=== PATIENT | female | born 1995 | race Hispanic/Latino ===

== ENCOUNTER 2021-07-01 21:38 | Day surgery (SDC) | payer OTHER ==
[~2021-07-01 21:38] MED LIST: Potassium Chloride 20 MEQ TAB PO SCH
[2021-07-01 22:09] VITALS: BMI 34.4
[2021-07-01] MEDS ORDERED: hydrALAZINE 20 MG/ML VIAL SLOW IVP PRN (22:39)
[2021-07-01] MEDS ORDERED: Lactated Ringer's 1,000 ML IV SCH ×2 (22:45)
[2021-07-01 23:03] LABS: #Monocytes 0.4 10x3/uL (0.0-1.1); #Neutrophils 7.1 10x3/uL (1.5-8.4); %Basophils 0.1 % (0.0-2.0); %Eosinophils 0.4 % (0.0-6.0); %Lymphocytes 11.1 % (18.0-47.0); %Monocytes 4.1 % (0.0-10.0); %Neutrophils 83.7 % (40.0-75.0); Hemoglobin 12.7 g/dL (12.0-15.5); Mean Corpuscular HGB CONC 35.4 g/dL (32.0-36.0); Mean Corpuscular Hemoglobin 32.2 pg (27.0-33.0); Mean Corpuscular Volume 90.9 fl (81.6-98.3); Mean Platelet Volume 11.2 fl (7.4-10.4); Platelet Count 164 10x3/uL (150-450); RBC Distribution Width 12.9 % (11.5-14.5); Red Blood Cell (RBC) Count 3.95 10x6/uL (3.90-5.03); White Blood Cell (WBC) Count 8.5 10x3/uL (3.5-10.5)
[2021-07-01 23:05] LABS: Bilirubin Neg (Negative); Blood, Urine Negative (Negative); Clarity Cloudy (Clear); Glucose, Urine (Dipstick) Normal (Negative); Ketone, Urine 150 mg/dL (Negative); Leukocyte 25 (Negative); Nitrite Negative (Negative); Protein, Urine (Dipstick) 15 mg/dl (Neg-Trace); Specific Gravity, Urine 1.015 (1.002-1.036)
[2021-07-01 23:19] LABS: ALT (SGPT) 12 U/L (8-55); AST (SGOT) 15 U/L (5-34); Albumin 3.5 g/dL (3.5-5.0); Alkaline Phosphatase 108 U/L (40-110); Anion Gap 15 mmol/L (10-20); BUN (Urea Nitrogen) 6 mg/dL (7.0-18.7); Bilirubin, Total 1.6 mg/dL (0.2-1.2); Calc. Creatinine Clearance 178 mL/min (70-130); Calcium 8.4 mg/dL (7.8-10.44); Carbon Dioxide 16 mmol/L (22-29); Chloride 105 mmol/L (98-107); Globulin 3.7 g/dL (2.4-3.5); Glucose 91 mg/dL (70-105); Potassium 3.1 mmol/L (3.5-5.1); Protein, Total 7.2 g/dL (6.0-8.3); Sodium 133 mmol/L (136-145)
[2021-07-01 23:23] LABS: Bacteria/HPF 2+ HPF (None Seen); Mucous/LPF None Seen LPF (<2+); RBC/HPF 0-3 HPF (0-3)
[2021-07-02 00:33] LABS: Bilirubin Neg (Negative); Blood, Urine Negative (Negative); Glucose, Urine (Dipstick) Normal (Negative); Ketone, Urine 50 mg/dL (Negative); Leukocyte Negative (Negative); Nitrite Negative (Negative); Protein, Urine (Dipstick) Negative (Neg-Trace); Specific Gravity, Urine 1.005 (1.002-1.036); Urobilinogen Normal mg/dL (Less than 2)
[2021-07-02 00:35] LABS: Clarity Clear (Clear)
== END 2021-07-02 02:40 | disposition home or self-care (01) ==
LOC: CSHLD/OP 21:38
PROVIDERS: ATTEND Family Medicine
DX: O99.891 Other specified diseases and conditions complicating pregnancy (principal); O34.219 Maternal care for unspecified type scar from previous cesarean delivery; R10.9 Unspecified abdominal pain; N85.8 Other specified noninflammatory disorders of uterus; Z3A.33 33 weeks gestation of pregnancy; Z79.899 Other long term (current) drug therapy
CPT/HCPCS: 36415; 80053; 81003; 81015; 85025

== ENCOUNTER 2021-08-08 07:51 | Outpatient (CLI) | payer OTHER ==
[2021-08-08 22:04] LABS: SARS-CoV-2 PCR by NAA Not Detected (NotDetected)
== END 2021-08-08 07:52 | disposition home or self-care (01) ==
LOC: CSHLAB 07:51
PROVIDERS: ATTEND Family Medicine
DX: Z20.822 Contact with and (suspected) exposure to COVID-19 (principal)
CPT/HCPCS: U0003; U0005

== ENCOUNTER 2021-08-12 10:17 | Inpatient (IN) | payer MEDICAID, OTHER ==
[2021-08-12] MEDS ORDERED: Promethazine HCl 25 MG/ML VIAL IM PRN ×4 (10:27→16:19)
[2021-08-12] MEDS ORDERED: Ondansetron PF 4 MG/2 ML Vial IVP PRN ×5 (10:27→23:20)
[2021-08-12] MEDS ORDERED: Famotidine/PF 20 mg/2ml Vial SLOW IVP PRN (10:27)
[2021-08-12] MEDS ORDERED: Bicitra 30 ML UDCUP PO PRN (10:27)
[2021-08-12] MEDS ORDERED: hydrALAZINE 20 MG/ML VIAL SLOW IVP PRN ×2 (10:27→23:20)
[2021-08-12] MEDS ORDERED: Lactated Ringer's 1,000 ML IV SCH (10:30)
[2021-08-12] MEDS ORDERED: CEFAZOLIN 2 GM in Premix Bag 1 BAG IVPB SCH (10:30)
[2021-08-12 11:48] VITALS: BMI 34.7
[2021-08-12 13:03] LABS: Hemoglobin 12.2 g/dL (12.0-15.5); Mean Corpuscular HGB CONC 33.6 g/dL (32.0-36.0); Mean Corpuscular Hemoglobin 31.2 pg (27.0-33.0); Mean Corpuscular Volume 92.8 fl (81.6-98.3); Mean Platelet Volume 12.2 fl (7.4-10.4); Platelet Count 175 10x3/uL (150-450); RBC Distribution Width 13.3 % (11.5-14.5); Red Blood Cell (RBC) Count 3.91 10x6/uL (3.90-5.03); White Blood Cell (WBC) Count 7.5 10x3/uL (3.5-10.5)
[2021-08-12 13:40] LABS: Hep B Surf Ag Non-Reactive S/CO (NonReactive); Syphilis Antibody Nonreactive (Nonreactive); Syphilis Antibody Index 0.04 S/CO (<1.00 Non-Reactive)
[2021-08-12 13:43] LABS: HBSAg Index 0.17 S/CO (0-0.99)
[2021-08-12] MEDS ORDERED: Ketorolac Tromethamine 30 MG/ML VIAL IVP PRN ×3 (14:15→16:19)
[2021-08-12] MEDS ORDERED: Naloxone HCl 0.4 mg/ml Vial IVP PRN ×6 (14:15→16:19)
[2021-08-12] MEDS ORDERED: Naloxone HCl 0.4 mg/ml Vial IV PRN ×3 (14:15→16:19)
[2021-08-12] MEDS ORDERED: Hydrocerin (Eucerin) Cream 120 gm Jar TOP PRN ×3 (14:15→16:19)
[2021-08-12] MEDS ORDERED: Promethazine HCl 25 MG SUPP PR PRN ×3 (14:15→16:19)
[2021-08-12] MEDS ORDERED: diphenhydrAMINE 50 MG/ML VIAL IVP PRN ×3 (14:15→16:19)
[2021-08-12] MEDS ORDERED: Communication Order-Pharmacy FS SCH ×3 (14:15→16:30)
[2021-08-12] MEDS ORDERED: Ondansetron PF 4 MG/2 ML Vial ONE (16:03)
[2021-08-12] MEDS ORDERED: Morphine PF 10 MG/10 ML VIAL ONE (16:03)
[2021-08-12] MEDS ORDERED: Dexamethasone 4 mg/ml Vial ONE (16:03)
[2021-08-12] MEDS ORDERED: Oxytocin 10 UNITS/ML VIAL ONE (16:04)
[2021-08-12] MEDS ORDERED: PHENYLEPHRINE-NS 100 MCG/ML 10 ML SYRINGE ONE (16:04)
[2021-08-12] MEDS ORDERED: Ondansetron HCl/PF 4 MG/2 ML Vial IVP PRN ×2 (16:14→16:19)
[2021-08-12] MEDS ORDERED: HYDROmorphone 2 MG/ML VIAL SLOW IVP PRN ×2 (16:14→16:19)
[2021-08-12] MEDS ORDERED: Meperidine HCl/PF 25 MG/ML VIAL SLOW IVP PRN ×2 (16:14→16:19)
[2021-08-12] MEDS ORDERED: Fentanyl 100 MCG/2 ML VIAL SLOW IVP PRN ×2 (16:14→16:19)
[2021-08-12] MEDS ORDERED: Ketorolac Tromethamine 30 MG/ML VIAL IVP SCH ×2 (16:15→16:30)
[2021-08-12] MEDS ORDERED: Phenylephrine 40 MG/NS 250 ML 250 ML ONE (16:29)
[2021-08-12] MEDS ORDERED: Triamcinolone 40 MG/ML VIAL FS SCH (17:00)
[2021-08-12] MEDS ORDERED: Ketorolac Tromethamine 30 MG/ML VIAL ONE (17:35)
[2021-08-12] MEDS ORDERED: NS w/ Oxytocin 30 units 500 ML ONE (19:19)
[2021-08-12] MEDS ORDERED: NS w/ Oxytocin 30 units 500 ML IV SCH ×2 (21:30→23:20)
[2021-08-12] MEDS ORDERED: HYDROcodone/Acetaminophen 5/325 mg Tablet PO PRN (23:20)
[2021-08-12] MEDS ORDERED: Simethicone Chewable 80 MG TAB PO PRN (23:20)
[2021-08-12] MEDS ORDERED: Lanolin Ointment 7 GM TUBE TOP PRN (23:20)
[2021-08-12] MEDS ORDERED: Bisacodyl 10 MG SUPP PR PRN (23:20)
[2021-08-12] MEDS ORDERED: Boostrix 0.5 ML (Tdap) VIAL IM ONE (23:20)
[2021-08-12] MEDS ORDERED: Docusate Calcium (SURFAK) 240 MG CAP PO SCH (23:30)
[2021-08-13] MEDS: Ketorolac Tromethamine 30 MG/ML VIAL IVP SCH ×3 (00:38→11:29)
[2021-08-13] MEDS: diphenhydrAMINE 25 MG CAP PO PRN ×2 (00:43→11:29)
[2021-08-13 04:10] LABS: Hemoglobin 11.4 g/dL (12.0-15.5); Mean Corpuscular HGB CONC 34.1 g/dL (32.0-36.0); Mean Corpuscular Hemoglobin 31.4 pg (27.0-33.0); Mean Platelet Volume 11.8 fl (7.4-10.4); Platelet Count 167 10x3/uL (150-450); RBC Distribution Width 13.3 % (11.5-14.5); Red Blood Cell (RBC) Count 3.63 10x6/uL (3.90-5.03); White Blood Cell (WBC) Count 10.5 10x3/uL (3.5-10.5)
[2021-08-13] MEDS: Ferrous Sulfate 325 MG TAB PO SCH ×2 (09:02→20:50)
[2021-08-13] MEDS: Docusate Calcium (SURFAK) 240 MG CAP PO SCH ×2 (09:03→21:21)
[2021-08-13] MEDS: Prenatal Vitamin 1 TAB PO SCH (09:03)
[2021-08-13] MEDS: HYDROcodone/Acetaminophen 5/325 mg Tablet PO PRN ×2 (14:50→18:51)
[2021-08-13] MEDS: Ibuprofen 800 MG TAB PO SCH (21:21)
[2021-08-14] MEDS: HYDROcodone/Acetaminophen 5/325 mg Tablet PO PRN ×3 (05:30→21:50)
[2021-08-14] MEDS: Ibuprofen 800 MG TAB PO SCH ×3 (05:30→21:47)
[2021-08-14] MEDS: Ferrous Sulfate 325 MG TAB PO SCH ×2 (07:29→21:13)
[2021-08-14] MEDS: Docusate Calcium (SURFAK) 240 MG CAP PO SCH ×2 (08:23→21:47)
[2021-08-14] MEDS: Prenatal Vitamin 1 TAB PO SCH (08:23)
[2021-08-15] MEDS: Ibuprofen 800 MG TAB PO SCH (05:12)
[2021-08-15] MEDS: Ferrous Sulfate 325 MG TAB PO SCH (07:37)
[2021-08-15 08:12] VITALS: BP 98/59; TEMP 98.2
[2021-08-15] MEDS: Prenatal Vitamin 1 TAB PO SCH (08:19)
[2021-08-15] MEDS: Docusate Calcium (SURFAK) 240 MG CAP PO SCH (08:19)
== END 2021-08-15 11:50 | disposition home or self-care (01) | DRG 788 ==
LOC: CSHLD 10:17 → CSHPP 21:05
PROVIDERS: ADMIT Family Medicine; ATTEND Family Medicine
PROC: 10D00Z1 Extraction of Products of Conception, Low, Open Approach (ICD-10-PCS; principal; 2021-08-12)
DX: O34.211 Maternal care for low transverse scar from previous cesarean delivery (principal); Z3A.39 39 weeks gestation of pregnancy; Z37.0 Single live birth
CPT/HCPCS: 36415; 51702; 85027; 86780; 86850; 86900; 86901; 87340; J0690; J1100; J1885; J2274; J2405; J2590; J7120